=== PATIENT | female | born 1935 | race Caucasian/White ===

== ENCOUNTER 2017-02-11 08:21 | Emergency (ER) | payer MEDICARE, OTHER ==
--- NOTE | 2017-02-11 08:48 | ERNOTE ---
Neuro HPI ER Record Date of Service: 02/11/17 Presenting Symptoms: confusion Time Seen by Provider: 02/11/17 08:30 Source: patient, EMS Exam Limitations: clinical condition Allergies/Adverse Reactions: Allergies Allergy/AdvReac Type Severity Reaction Status Date / Time Penicillins AdvReac Severe Swelling Verified 02/11/17 08:51 (Other) Home Medications: HOME MEDICATIONS Alendronate Sodium 35 mg PO ALSTON 12/03/13 [Last Taken Unknown] Amlodipine Besylate [Norvasc] 10 mg PO DAILY 12/03/13 [Last Taken Unknown] Calcium Carb/Vitamin D3/Vit K1 [Calcium + D Soft Chewable Tab] 1 each PO DAILY 12/03/13 [Last Taken Unknown] Folic Acid 0.8 mg PO DAILY 12/03/13 [Last Taken Unknown] Hydrochlorothiazide 25 mg PO DAILY 12/03/13 [Last Taken Unknown] Levothyroxine Sodium [Synthroid] 100 mcg PO DAILY 12/03/13 [Last Taken Unknown] Lisinopril 40 mg PO BID 12/03/13 [Last Taken Unknown] Metoprolol Succinate [Toprol Xl] 100 mg PO BID 12/03/13 [Last Taken Unknown] Potassium 99 mg PO QID 12/03/13 [Last Taken Unknown] - History of Present Illness Narrative: Known Alzheimers. More confused this morning. Walking around in her underwear. Lives at home with her son, who physically has trouble getting around. Mainly just bewildered in the ER. Knows where she is, how she got here by ambulance,that her son thought she was more confused. She notices the confusion also, or at least she so reports. Onset: upon waking, continues in ER Severity: mild, moderate Context: other - Character of Deficits Additional Deficits: Present: other Baseline Cognition: Present: alert but confused Baseline Gait: Present: uses a cane/walker Associated Symptoms: Reports: trouble thinking Prior Treament: Reports: recently seen - January 05 by her physician. Review of Systems - Review of Systems Constitutional: Present: no symptoms reported EYE: Present: no symptoms reported ENT: Present: no symptoms reported Respiratory: Present: no symptoms reported Cardiology: Present: no symptoms reported Gastrointestinal/Abdominal: Present: no symptoms reported Genitourinary: Present: no symptoms reported Musculoskeletal: Present: joint pain - knees, ankles,feet, off and on. Skin: Present: no symptoms reported Neurological: Present: See HPI Endocrine: Present: no symptoms reported Hematologic/Lymphatic: Present: no symptoms reported Psych: Present: no symptoms reported All Other Systems: All systems neg except as marked - Patient's Past Medical History Patient History - Medical: Alzheimer's Disease Patient History - Cardiac/Respiratory: Hypertension Patient History - Cancer: Breast Patient History - Surgical Procedures: Other - Mastectomy - Social History Smoking Status: Never smoker Alcohol Use: none Physical Exam - Physical Exam General Appearance: Present: wd/wn, alert, no apparent distress Eye Exam: Normal inspection: bilateral, PERRL: bilateral, EOMI: bilateral Ears, Nose, Throat: Present: normal ENT inspection Neck: Present: normal inspection Respiratory: Present: no respiratory distress, normal breath sounds Cardiovascular/Chest: Present: regular rate, rhythm, no murmur Gastrointestinal/Abdominal: Present: normal bowel sounds, nontender, nondistended, soft, no organomegaly Back Exam: Present: normal inspection Extremity Exam: Present: extremity edema Neurological Exam: Present: alert, normal mood/affect, disoriented to time, other - uses a can in right hand to walk Skin Exam: Present: normal color, warm/dry Lymphatic Exam: Present: no adenopathy ED Progress - Results and Orders Patient's Lab Results:: I have reviewed the patient's lab results. - Vital Signs Patient's Vital Signs:: I have reviewed the patient's vital signs. - EKG EKG: nonspecific ST T wave changes, LVH EKG read: Interp. by me - sinus bradycardia - X-Ray X-Ray #1 X-Ray: chest Interpretation: Interp. by me - non acute - CT/Ultrasound CT/Ultrasound Narrative: I have reviewed the head CT report which is non acute. - Progress/Reassessment Progress:: Unchanged Departure Clinical Impression: Alzheimer's dementia without behavioral disturbance Qualifiers: Alzheimer's disease onset: late-onset Qualified Code(s): G30.1 - Alzheimer's disease with late onset - Departure Disposition: Home self-care Condition: Good Instructions: Alzheimer Disease, Alzheimer Disease Caregiver Guide, Easy-to- Read Additional Instructions: follow up with your doctor in the next 1-2 weeks. Referrals: David Avial MD [Primary Care Provider] -
[2017-02-11 09:02] LABS: Hematocrit 42.1 % (37.0-47.0); Hemoglobin 13.9 gm/dL (12.5-16.0); Mean Cell Volume 91.9 fl (78-100); Mean Corpuscular Hemoglobin 30.3 pg (27-31); Mean Platelet Volume 9.7 fl (6.0-9.5); Neutrophil # 3.6 K/mm3 (1.3-6.0); Neutrophil % 69.6 % (42-75.0); Platelet Count 208 K/mm3 (150-450); Red Blood Count 4.58 M/mm3 (4.2-5.4); Red Cell Distribution Width 13.1 % (11.5-14.0); White Blood Count 5.2 K/mm3 (4.0-10.5)
--- OUTSIDE RECORDS SUMMARY | 2017-02-11 09:06 | XMS REPORT | Continuity of Care Document ---
:1935 Author Organization [facility] ([facility]) Address [place] [address] Phone [phone] Care Team Providers Name Role Phone Brenna Avilamackenzie Primary Care Provider [phone] Source Comments This disclosure is being made pursuant to the Care Everywhere program, applicable federal and state laws, and may not contain all informaitonavailable regarding this patient.[facility] ([facility]) Active Allergies and Adverse Reactions Allergen Noted Date Severity Reactions Comments Penicillins 08/06/2009 Purpura Current Medications Prescription Sig. Disp. Refills Start Date End Date Status amLODIPine (NORVASC) 10 take 10 mg by mouth Active mg tablet daily. metoPROLol (TOPROL XL) Take 100 mg by mouth Active 100 mg XL tablet 2 times daily. levothyroxine Take 75 mcg by mouth Active (SYNTHROID) 100 mcg daily. tablet Folic Acid 800 mcg Tab take 1 Tab by mouth Active daily. lisinopril (PRINIVIL) 10 Take 40 mg by mouth Active mg tablet 2 times daily. memantine (NAMENDA XR) Take as directed Active 7-14-21-28 mg XR according to package sprinkle capsule instructions. titration pack atenolol 50 mg tablet Take 50 mg by mouth Active daily. potassium chloride 10 Take 10 mEq by mouth Active mEq XR tablet daily. furosemide 40 mg tablet Take 40 mg by mouth Active daily. triamcinolone 0.025 % apply topically 2 Active ointment times daily. Apply a thin layer to affected area. lisinopril 20 mg tablet 1 12/14/2015 Active donepezil 10 mg tablet at bedtime. 02/17/2016 Active potassium chloride 10 Take 10 mEq by mouth 3 01/25/2016 Active mEq tablet daily. levothyroxine 75 mcg Take 75 mcg by mouth Active tablet every morning before breakfast. aspirin 81 mg EC tablet Take 81 mg by mouth Active daily. 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 Neoplasm of unspecified nature of breast 07/09/2002 Social History Tobacco Use Types Packs/Day Years Used Date Never Smoker Smokeless Tobacco: Never Used Alcohol Use Drinks/Week oz/Week Comments No Last Filed Vital Signs Vital Sign Reading Time Taken Blood Pressure 136/60 03/10/2014 10:22 AM CDT Pulse 68 03/10/2014 10:22 AM CDT Temperature 36 C (96.8 F) 03/10/2014 8:38 AM CDT Respiratory Rate 16 01/15/2014 8:00 AM CDT Height 1.524 m (5') 01/14/2014 8:02 AM CDT Weight 73.029 kg (161 lb) 01/14/2014 8:02 AM CDT Body Mass Index 31.44 01/14/2014 8:02 AM CDT Oxygen Saturation 96% 01/15/2014 8:00 AM CDT Plan of Care Health Maintenance Due Date Last Done Comments Hepatitis B Vaccine (1 of 3 - Primary Series) 1935 Tdap Vaccine 1944 Lipid Disorder Screening 1951 Td Vaccine 1951 Colonoscopy 1983 Zoster Vaccine 1993 Osteoporosis Screening (DXA Bone Density) 1998 Pneumococcal Vaccine (1 of 2 - PCV13) 1998 Influenza Vaccine: Seasonal (#1) 06/06/2016 Results from Last 3 Months Not on file
[2017-02-11 09:29] LABS: Albumin * 3.4 gm/dl (3.4-5.0); BUN/Creatinine Ratio 24.1 (9.0-21.6); Bilirubin, Total 1.1 mg/dL (0.0-1.1); Ca. Corrected For Albumin 9.3 mg/dL (8.4-10.2); Calcium * 9.1 mg/dL (7.9-10.9); Carbon Dioxide 33.3 mmol/L (24-32.6); Potassium 3.3 mmol/L (3.4-4.6); T4 Free * 1.55 ng/dL (0.76-1.46); TSH * 1.443 uIU/mL (0.358-3.74); Total Protein 6.4 gm/dL (6.2-8.2)
[2017-02-11 09:31] LABS: Troponin I 0.019 ng/ml (0.00-0.10)
[2017-02-11] MEDS ORDERED: POTASSIUM CHLORIDE 20 MEQ TABLET.SA PO ONE (09:43)
[2017-02-11 09:47] LABS: Urine Bilirubin Negative (NEGATIVE); Urine Blood Negative /ul (NEGATIVE); Urine Ketone Negative (NEGATIVE); Urine Nitrite Negative (NEGATIVE); Urine Protein Negative (NEGATIVE); Urine Urobilinogen Normal (NORMAL)
[2017-02-11 09:48] LABS: Urine Appearance Clear; Urine Color Pale Yellow
[2017-02-11] MEDS ORDERED: POTASSIUM CHLORIDE 20 MEQ TABLET.SA ONE (09:56)
[2017-02-11 09:59] LABS: Urine Bacteria None Seen; Urine RBC None Seen /hpf (0-5); Urine WBC None Seen /hpf (0-5)
[2017-02-11 10:08] VITALS: BP 205/75
[2017-02-11] MEDS ORDERED: METOPROLOL TARTRATE 100 MG TABLET PO ONE (10:10)
[2017-02-11] MEDS ORDERED: LISINOPRIL 10 MG TABLET PO ONE (10:10)
[2017-02-11] MEDS ORDERED: METOPROLOL TARTRATE 100 MG TABLET ONE (10:19)
[2017-02-11] MEDS ORDERED: LISINOPRIL 10 MG TABLET ONE (10:19)
== END 2017-02-11 11:08 | disposition home or self-care (01) ==
LOC: ER 08:21
DX: G30.1 Alzheimer's disease with late onset (principal)